=== PATIENT | male | born 1960 | race Caucasian/White ===

== ENCOUNTER 2019-02-04 13:53 | Emergency (ER) | payer SELFPAY ==
[~2019-02-04] VITALS: Ht 170.2 cm; Wt 68.0 kg
[2019-02-04 16:41] VITALS: BP 162/96
== END 2019-02-04 19:31 | disposition left against medical advice (07) ==
LOC: ER 13:53
DX: G89.29 Other chronic pain (principal); M25.562 Pain in left knee; M25.561 Pain in right knee; Z04.89 Encounter for examination and observation for other specified reasons; I10 Essential (primary) hypertension; F17.210 Nicotine dependence, cigarettes, uncomplicated; Z91.81 History of falling
CPT/HCPCS: 99283